=== PATIENT | male | born 1990 | race African-American/Black ===

== ENCOUNTER 2017-06-03 13:34 | Emergency (ER) | payer OTHER, SELFPAY ==
[2017-06-03] MEDS ORDERED: Dexamethasone 4 mg/ml Vial ONE (14:21)
[2017-06-03] MEDS ORDERED: Ibuprofen 800 MG TAB ONE (14:21)
== END 2017-06-03 14:35 | disposition home or self-care (01) ==
LOC: NAV ERS 13:34
DX: M54.12 Radiculopathy, cervical region (principal); I10 Essential (primary) hypertension; M79.602 Pain in left arm; F17.210 Nicotine dependence, cigarettes, uncomplicated; Z79.899 Other long term (current) drug therapy
CPT/HCPCS: 96372; J1100

== ENCOUNTER 2023-09-23 19:00 | Emergency (ER) | payer BC, SELFPAY ==
[2023-09-23] MEDS ORDERED: Naproxen 500 MG TAB ONE (19:34)
== END 2023-09-23 20:22 | disposition left against medical advice (07) ==
LOC: NAV ERS 19:00
DX: S93.602A Unspecified sprain of left foot, initial encounter (principal); R00.0 Tachycardia, unspecified; R61 Generalized hyperhidrosis; I11.0 Hypertensive heart disease with heart failure; I50.9 Heart failure, unspecified; Z79.899 Other long term (current) drug therapy; X58.XXXA Exposure to other specified factors, initial encounter